=== PATIENT | male | born 1945 | race Caucasian/White ===

== ENCOUNTER 2018-01-23 11:18 | Emergency (ER) | payer OTHER, MEDICARE ==
[~2018-01-23] VITALS: Ht 175.3 cm; Wt 87.1 kg
[~2018-01-23 11:18] MED LIST: ASPIRIN EC81 M1 PO; HYDRODIURIL 112.5 M1 PO; LIALDA1.2 G1 PO; LISINOPRIL40 MG PO; NEURONTIN300 MG PO; PERCOCET 325 MG1 TA2 PO; RESTASIS 0.4 M0.4 ML OPH
[2018-01-23 11:40] LABS: ABSOLUTE BASOPHIL COUNT 0 /CUMM (0.0-0.2); ABSOLUTE EOSINOPHIL COUNT 0.3 /CUMM (0.0-0.7); ABSOLUTE GRANULOCYTE CT 6.8 /CUMM (1.4-6.5); ABSOLUTE LYMPH COUNT 0.9 /CUMM (1.2-3.4); ABSOLUTE MONOCYTE COUNT 0.6 /CUMM (0.10-0.60); BASOPHIL % 0.2 % (0.0-2.0); HEMATOCRIT 41.1 % (42-52); MEAN CORPUSCULAR HGB 30.5 PG (27.0-31.0); MEAN CORPUSCULAR HGB CONC 34.2 G/DL (33.0-37.0); MEAN CORPUSCULAR VOLUME 89.1 FL (80.0-94.0); MEAN PLATELET VOLUME 9.7 FL (7.4-10.4); PLATELET COUNT 240 /CUMM (130-400); RBC DISTRIBUTION WIDTH 13.8 % (11.5-14.5); RED BLOOD CELL CT 4.61 /CUMM (4.70-6.10); WHITE BLOOD CELL COUNT 8.7 /CUMM (4.8-10.8)
--- NOTE | 2018-01-23 11:52 | ED CARDIAC/CP/PALPITATIONS ---
History of Present Illness General Chief Complaint: General Adult Stated Complaint: HEAD EAR LFT ARM PAIN Source: patient Exam Limitations: no limitations Vital Signs & Intake/Output Vital Signs & Intake/Output Vital Signs Date Time Temp Pulse Resp B/P B/P Pulse O2 O2 Flow FiO2 Mean Ox Delivery Rate 01/23 1558 97.8 58 18 134/76 97 Room Air 01/23 1432 98.0 55 20 117/63 99 Room Air 01/23 1310 98.6 64 20 134/73 98 Room Air 01/23 1123 98.8 60 18 131/81 987 Room Air Allergies Coded Allergies: NO KNOWN ALLERGIES (08/31/15) Reconcile Medications Aspirin (Ecotrin*) 81 MG TABLET.DR 1 TAB PO DAILY HEART HEALTH (Reported) Azilsartan Medoxomil (Edarbi) 80 MG TABLET 1 TAB PO DAILY HEART (Reported) Bupropion HCl 100 MG TABLET 1 TAB PO BID MENTAL HEALTH (Reported) Diltiazem HCl (Cardizem Cd) 300 MG CAP.ER.24H 1 CAP PO DAILY HEART (Reported) Mesalamine (Lialda) 1.2 GRAM TABLET.DR 3 TAB PO DAILY GI (Reported) Metoprolol Succinate 25 MG TAB 1 TAB PO DAILY HEART (Reported) Spironolactone (Aldactone) 25 MG TABLET 1 TAB PO DAILY HEART (Reported) Tylenol With Codeine (Tylenol With Codeine #3 Tablet) 300 MG-30 MG TABLET 1 TAB PO BIDP PRN PAIN Triage Note: PT STATES HE HAS PAIN IN BEHIND HIS LEFT EAR DOWN HIS NECK INTO HIS ARM FOR THE LAST 48HR. PT STATSE DR. PÉREZ SENT HIM IN FOR EVAL. PT DENIES SOB NO DIAPHORESIS. PT STATES HE DOES HAVE HTN AND SEES DR. RICO FOR THAT. Triage Nurses Notes Reviewed? yes Onset: Gradual Duration: better Timing: single episode today Radiation: neck, shoulders HPI: Patient is a 72-year-old male with a past medical history of hypertension who has an establishment with invasive physician Dr. Hendrix who presents emergency room stating that yesterday evening while at rest at approximately 11:30 at night he had a gradual onset of left-sided behind the ear pain with radiation down his left lateral neck region to his upper trapezius and left shoulder and left chest region. Patient states that this morning he took Naprosyn with relief of symptoms Patient denies any fevers chills year pain sore throat cough or hemoptysis nausea vomiting diaphoresis Patient states that neck movements make worse Denies any significant alcohol use or smoking history Currently complains of 1/10 left lateral neck and behind the ear pain Patient denies any trauma to the neck or mechanism injury Past History Travel History Traveled to [place] past 21 day No Medical History Any Pertinent Medical History? see below for history Neurological: TRIGEMMINAL NEURALGIA Cardiovascular: hypertension Gastrointestinal: colitis Surgical History Surgical History: non-contributory Psychosocial History Who do you live with Patient/Self Services at Home None What is your primary language Croatian Tobacco Use: Never used ETOH Use: occasional use Illicit Drug Use: denies illicit drug use Family History Hx Contributory? No Review of Systems Review of Systems Constitutional: Reports: see HPI. Denies: chills, fever. EENTM: Reports: see HPI. Respiratory: Reports: see HPI. Denies: cough, short of breath. Cardiovascular: Reports: see HPI, chest pain. GI: Reports: no symptoms. Genitourinary: Reports: no symptoms. Musculoskeletal: Reports: see HPI, neck pain. Skin: Reports: no symptoms. Neurological/Psychological: Reports: see HPI. Denies: numbness. Hematologic/Endocrine: Reports: no symptoms. Immunologic/Allergic: Reports: no symptoms. All Other Systems: Reviewed and Negative Physical Exam Physical Exam General Appearance: no apparent distress, alert, comfortable Head: atraumatic Eyes: Bilateral: normal appearance. Ears, Nose, Throat: normal pharynx, normal ENT inspection Neck: normal inspection, supple, full range of motion, MILD LEFT LATERAL NECK PAIN UPON PALPATION Respiratory: normal breath sounds, chest non-tender, no respiratory distress Cardiovascular: regular rate/rhythm Peripheral Pulses: 2+ radial (L) Gastrointestinal: normal bowel sounds, soft, non-tender Extremities: normal inspection, SHOULDER FLEXION AND ABDUCTION REPRODUCED LEFT LATERAL NECK PAIN Neurologic/Psych: no motor/sensory deficits, awake Skin: intact, normal color, warm/dry Core Measures ACS in differential dx? Yes CVA/TIA Diagnosis No Sepsis Present: Yes Sepsis Focused Exam Completed? Yes Progress Differential Diagnosis: AMI, aortic dissection, atrial fibrillation, cholecystitis, CHF/pulm edema, costochondritis, hyperkalemia, hypovolemia, hyperthyroid, hyperventilation, intracranial hemorrhage, musculoskeletal pain, myocarditis, pancreatitis, pericarditis, pneumonia, pneumothorax, PSVT, pulmonary embolism, PUD/GERD, PVCs/PACs, respiratory failure, rib fracture, sepsis, unstable angina, V-fib/V-Tach, WPW syndrome Plan of Care: Orders Procedure Date/time Status TROPONIN LEVEL 01/23 1530 Complete EKG 01/23 1530 Active Add-on Test (ER Only) 01/23 1201 Active D-DIMER 01/23 1201 Complete TROPONIN LEVEL 01/23 1128 Complete MAGNESIUM 01/23 1128 Complete COMPREHENSIVE METABOLIC PANEL 01/23 1128 Complete CHOLESTEROL 01/23 1128 Complete CBC WITHOUT DIFFERENTIAL 01/23 1128 Complete EKG 01/23 1119 Active Laboratory Tests 01/23/18 1535: Troponin I < 0.01 01/23/18 1133: Anion Gap 9, Estimated GFR 59 L, BUN/Creatinine Ratio 24.2, Glucose 79, Calcium 9.1, Magnesium 2.0, Total Bilirubin 0.6, AST 18, ALT 33, Alkaline Phosphatase 106, Troponin I < 0.01, Total Protein 6.6, Albumin 3.7, Globulin 2.9, Albumin/ Globulin Ratio 1.3, Cholesterol 149, D-Dimer High Sensitivty 518 H, CBC w Diff NO MAN DIFF REQ, RBC 4.61 L, MCV 89.1, MCH 30.5, MCHC 34.2, RDW 13.8, MPV 9.7, Gran % 78.0 H, Lymphocytes % 10.6 L, Monocytes % 7.2, Eosinophils % 4.0, Basophils % 0.2, Absolute Granulocytes 6.8 H, Absolute Lymphocytes 0.9 L, Absolute Monocytes 0.6, Absolute Eosinophils 0.3, Absolute Basophils 0 Upon initial examination patient is resting comfortably at bedside 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 Patient had improvement as well of pain with Naprosyn prior to arrival Patient has been reevaluated on multiple occasions elevated work platform operator was unremarkable normal sinus rhythm patient was requesting pain for the left lateral neck symptoms that he had a she was given Tylenol. First troponin was unremarkable d-dimer was mildly elevated CT and she will be ordered, patient will receive second set troponin at 1530 1610- VQ scan was negative patient is only complaining of left-sided lateral neck pain has not had chest pain on the emergency room second set cardiac enzymes pending repeat EKG was unremarkable no changes Patient's second set troponin was unremarkable after 4 hours in which she had no chest pain while in the emergency room, patient was strongly advised to follow- up with discharge instructions and plan and he will comply Diagnostic Imaging: Viewed by Me: Radiology Read, Nuclear Medicine. Radiology Impression: no acute abnormality, no fracture Initial ED EK BPM,NSR Repeat EKG: unchanged Comments: PATIENT: PENG DUTTA PRESENT AGE: 72 PATIENT ACCOUNT NO: [id number] : 44 LOCATION: [facility] ORDERING PHYSICIAN: Silvano THOMAS SERVICE DATE: 01/23/18 EXAM TYPE: NUC - LUNG SCAN (V/Q) EXAMINATION: PULMONARY VENTILATION PERFUSION STUDY CLINICAL INFORMATION: Chest pain, elevated d-dimer. COMPARISON: No previous lung scan is available for comparison. Radiographs of the chest dated 01/23/2018, the same date as this lung scan, are available for comparison. TECHNIQUE: Serial gamma scintillation camera images were obtained over the posterior chest during the single breath, equilibrium rebreathing and washout of 9.4 mCi Xe 133 gas. The patient then received 3.8 mCi Tc-99m MAA intravenously and a 6-view perfusion study was performed. FINDINGS: Ventilation images: On the single breath and equilibrium images there is homogeneous distribution of gas bilaterally. During the washout phase there is no abnormal retention. Perfusion images: No segmental perfusion defects are present. There is homogeneous distribution of activity bilaterally. There are no focal anatomic appearing perfusion defects present. IMPRESSION: Normal radionuclide lung ventilation perfusion scan. DICTATED BY: Yovany Ramsey MD DATE/TIME DICTATED:01/23/181523 LOW HEEL BUILDER:KAY PATIENT: PENG DUTTA PRESENT AGE: 72 PATIENT ACCOUNT NO: [id number] : 44 LOCATION: [facility] ORDERING PHYSICIAN: Guicho Devlin MD SERVICE DATE: 01/23/18 EXAM TYPE: RAD - XRY-CHEST XRAY, TWO VIEWS XR CHEST CLINICAL INFORMATION: Chest and neck pain. COMPARISON: Chest x-ray 08/12/2009 TECHNIQUE: 2 views of the chest were obtained. FINDINGS: Symmetric lung inflation. There is no focal consolidation, pleural effusion, or pneumothorax. Cardiac silhouette size is normal. There are no acute osseous findings. IMPRESSION: No acute pulmonary process. DICTATED BY: Guicho Beasley MD DATE/TIME DICTATED:01/23/181234 LOW HEEL BUILDER:KAY DATE/TIME TRANSCRIBED:01/23/181234 CONFIDENTIAL, DO NOT COPY WITHOUT APPROPRIATE AUTHORIZATION. <Electronically signed in Other Vendor System> SIGNED BY: Guicho Beasley MD 01/23/18 1240 Departure Departure Disposition: HOME OR SELF CARE Condition: Stable Clinical Impression Primary Impression: Neck pain Referrals: Radhika Lester DO (PCP/Family) Additional Instructions: As discussed continue home medications as directed please discontinue the use of NSAID such as Naprosyn due to your chronic kidney disease, follow-up withcardiologist tomorrow if no improvement, IF symptoms worsen or if YOU develop a new concerning symptom return to emergency room Begin the prescription Tylenol with Codeine, prescription is waiting at [facility] Follow-up with your primary care doctor on MONDAY if your neck is no better Departure Forms: Customer Survey General Discharge Information Prescriptions: Current Visit Scripts Tylenol With Codeine (Tylenol With Codeine #3 Tablet) 1 TAB PO BIDP PRN PAIN #8 TAB Critical Care Note Critical Care Note Critical Care Time: non-applicable
[2018-01-23] MEDS ORDERED: METOPROLOL SUCC25 M1 PO (12:01)
[2018-01-23] MEDS ORDERED: CARDIZEM CD300 M1 PO (12:02)
[2018-01-23] MEDS ORDERED: ALDACTONE25 MG PO (12:02)
[2018-01-23] MEDS ORDERED: BUPROPION HCL100 M2 PO (12:03)
[2018-01-23] MEDS ORDERED: EDARBI80 M1 PO (12:03)
--- NOTE | 2018-01-23 12:40 | RADIOLOGY REPORT ---
XR CHEST CLINICAL INFORMATION: Chest and neck pain. COMPARISON: Chest x-ray 08/12/2009 TECHNIQUE: 2 views of the chest were obtained. FINDINGS: Symmetric lung inflation. There is no focal consolidation, pleural effusion, or pneumothorax. Cardiac silhouette size is normal. There are no acute osseous findings. IMPRESSION: No acute pulmonary process.
--- NOTE | 2018-01-23 15:34 | NUCLEAR MEDICINE REPORT ---
EXAMINATION: PULMONARY VENTILATION PERFUSION STUDY CLINICAL INFORMATION: Chest pain, elevated d-dimer. COMPARISON: No previous lung scan is available for comparison. Radiographs of the chest dated 01/23/2018, the same date as this lung scan, are available for comparison. TECHNIQUE: Serial gamma scintillation camera images were obtained over the posterior chest during the single breath, equilibrium rebreathing and washout of 9.4 mCi Xe 133 gas. The patient then received 3.8 mCi Tc-99m MAA intravenously and a 6-view perfusion study was performed. FINDINGS: Ventilation images: On the single breath and equilibrium images there is homogeneous distribution of gas bilaterally. During the washout phase there is no abnormal retention. Perfusion images: No segmental perfusion defects are present. There is homogeneous distribution of activity bilaterally. There are no focal anatomic appearing perfusion defects present. IMPRESSION: Normal radionuclide lung ventilation perfusion scan.
[2018-01-23] MEDS ORDERED: TYLENOL WITH C1 EACH PO (15:53)
[2018-01-23 15:58] VITALS: BP 134/76
== END 2018-01-23 16:56 ==
LOC: ERH 11:18
PROVIDERS: Emergency Medicine
DX: M54.2 Cervicalgia (principal)
CPT/HCPCS: 71046; 78582; 93005; 93010; 96374; A9540; A9558; J0131